=== PATIENT | female | born 1940 | race Caucasian/White ===

== ENCOUNTER 2020-02-13 07:13 | Outpatient (CLI) | payer MEDICARE, SELFPAY ==
--- NOTE | ~2020-02-13 | CT_ITS ---
EXAMINATION: CT abdomen pelvis wo con DATE: 02/13/2020 08:03 INDICATION: Colon cancer TECHNIQUE: Computed tomography (CT) of the abdomen and pelvis was performed without intravenous contr ast. The dose-length product was 1205.93 mGy-cm. Automated exposure control and iterative reconstruct ion technique were employed. COMPARISON: CT dated 08/20/2019 FINDINGS: Stable 6 mm right lower lobe nodule, likely granuloma. Lingular atelectasis. Borderline hea rt size. No significant pleural or pericardial effusion. Gallstones. The liver, spleen, pancreas, adrenal glands and kidneys are unremarkable. Moderate athero sclerosis. No aneurysm. No lymphadenopathy. Colonic diverticulosis without evidence for diverticuliti s. Partial right colectomy. Small fat-containing umbilical hernia. Nonobstructive bowel gas pattern. No free air or free fluid. Moderate lumbar spondylosis. No osteolytic or osteoblastic lesions are caroline ntified. IMPRESSION: 1. No acute abdominal abnormality. No evidence for metastatic disease. 2: Cholelithiasis. Reviewed, dictated and finalized at location A.
[2020-02-13 07:35] LABS: Basophils Absolute Auto 0.1 K/mm3 (0.0-0.1); Basophils Percent Auto 0.6 % (0.2-1.2); Eosinophils Absolute Auto 0.2 K/mm3 (0-0.3); Eosinophils Percent Auto 1.6 % (0-4.4); Hematocrit 46.1 % (37.0-47.0); Hemoglobin 14.6 g/dL (12.0-15.0); Immature Granulocyte Absolute 0.04 K/mm3 (0.00-0.031); Immature Granulocyte Percent A 0.4 % (0-0.5); Lymphocytes Absolute Auto 1.94 K/mm3 (0.9-3.2); Lymphocytes Percent Auto 19.5 % (18.3-44.2); Mean Corpuscular HGB Conc 31.7 g/dl (32-36); Mean Corpuscular Hemoglobin 29.3 pg (26-34); Mean Corpuscular Volume 92.6 fl (80-100); Mean Platelet Volume 9.6 fl (7.4-10.4); Monocytes Absolute Auto 0.6 K/mm3 (0.1-0.6); Neutrophils Absolute Auto 7.2 K/mm3 (1.3-6.7); Neutrophils Percent Auto 71.9 % (45.5-73.1); Platelet Count Result 342 k/mm3 (150-375); Red Blood Count 4.98 M/mm3 (4.2-5.4); Red Cell Distribution Width 13.2 % (11.5-14.5)
[2020-02-13 07:46] LABS: Alanine Aminotransferase 25 U/L (4-35); Albumin Level 4.1 g/dL (3.5-5.1); Alkaline Phosphatase 120 U/L (38-126); Aspartate Amino Transferase 23 U/L (14-36); Bilirubin,Total 0.8 mg/dL (0.2-1.3); Blood Urea Nitrogen 20 mg/dL (7-17); Calcium 9.3 mg/dL (8.4-10.2); Carbon Dioxide 26 mmol/L (22-30); Chloride 104 mmol/L (98-107); Estimated Glomerular Filt Rate 48; Glucose 134 mg/dL (65-105); Potassium 3.9 mmol/L (3.4-5.0); Sodium 142 mmol/L (137-145)
[2020-02-13 08:16] LABS: Carcinoembryonic Antigen 1.9 ng/mL (0.0-3.0)
== END 2020-02-13 07:14 | disposition home or self-care (01) ==
PROVIDERS: PCP Family Medicine; Visit Provider Internal Medicine Medical Oncology
DX: C18.2 Malignant neoplasm of ascending colon (principal); K80.20 Calculus of gallbladder without cholecystitis without obstruction
CPT/HCPCS: 36415; 74176; 80053; 82378; 85025

== ENCOUNTER 2020-08-13 09:23 | Outpatient (CLI) | payer MEDICARE, SELFPAY ==
[2020-08-13 09:47] LABS: Basophils Absolute Auto 0.1 K/mm3 (0.0-0.1); Basophils Percent Auto 0.7 % (0.2-1.2); Eosinophils Absolute Auto 0.1 K/mm3 (0-0.3); Eosinophils Percent Auto 1.2 % (0-4.4); Hemoglobin 15.4 g/dL (12.0-15.0); Immature Granulocyte Absolute 0.03 K/mm3 (0.00-0.031); Immature Granulocyte Percent A 0.4 % (0-0.5); Lymphocytes Absolute Auto 1.67 K/mm3 (0.9-3.2); Lymphocytes Percent Auto 19.9 % (18.3-44.2); Mean Corpuscular HGB Conc 32.1 g/dl (32-36); Mean Corpuscular Hemoglobin 29.8 pg (26-34); Mean Corpuscular Volume 92.8 fl (80-100); Mean Platelet Volume 9.1 fl (7.4-10.4); Monocytes Absolute Auto 0.5 K/mm3 (0.1-0.6); Monocytes Percent Auto 5.6 % (2.6-8.5); Neutrophils Absolute Auto 6.1 K/mm3 (1.3-6.7); Neutrophils Percent Auto 72.2 % (45.5-73.1); Platelet Count Result 291 k/mm3 (150-375); Red Blood Count 5.17 M/mm3 (4.2-5.4); Red Cell Distribution Width 13.5 % (11.5-14.5); White Blood Count 8.4 K/mm3 (4.5-10.0)
[2020-08-13 10:03] LABS: Alanine Aminotransferase 24 U/L (4-35); Alkaline Phosphatase 97 U/L (38-126); Anion Gap 9 mmol/L (8-16); Aspartate Amino Transferase 24 U/L (14-36); Bilirubin,Total 0.6 mg/dL (0.2-1.3); Blood Urea Nitrogen 25 mg/dL (7-17); Calcium 9.6 mg/dL (8.4-10.2); Carbon Dioxide 27 mmol/L (22-30); Chloride 104 mmol/L (98-107); Estimated Glomerular Filt Rate 48; Glucose 144 mg/dL (65-105); Potassium 3.9 mmol/L (3.4-5.0); Sodium 140 mmol/L (137-145)
[2020-08-13 10:32] LABS: Carcinoembryonic Antigen 2.1 ng/mL (0.0-3.0)
== END 2020-08-13 09:24 | disposition home or self-care (01) ==
PROVIDERS: PCP Family Medicine; Visit Provider Internal Medicine Medical Oncology
DX: C18.2 Malignant neoplasm of ascending colon (principal)
CPT/HCPCS: 36415; 80053; 82378; 85025

== ENCOUNTER 2021-02-21 10:00 | Outpatient (CLI) | payer MEDICARE, SELFPAY ==
--- NOTE | ~2021-02-21 | CT_ITS ---
EXAMINATION: CT abdomen pelvis wo con DATE: 02/21/2021 10:33 INDICATION: Colon cancer restaging TECHNIQUE: Computed tomography (CT) of the abdomen and pelvis was performed without intravenous contr ast. Automated exposure control and iterative reconstruction technique were employed. Exam dose: 132 5.31 mGy-cm total exam DLP. COMPARISON: 02/13/[address] abdomen pelvis FINDINGS: Status post right partial colectomy for history of ascending colon cancer. Diverticulosis of the left colon; no CT evidence of diverticulitis. No bowel obstruction, bowel wall thickening, pneumatosis or intraperitoneal free air. The uterus and adnexal areas are unremarkable. There is extensive calcification of the abdominal aorta including at the origins of the celiac and keller perior mesenteric and renal arteries; no abdominal aortic aneurysm. Bilateral iliac and femoral arter y calcifications. Cholelithiasis. No gallbladder wall thickening or pericholecystic fat stranding or fluid is evident. No bile duct or pancreatic duct dilatation. No hepatic, splenic, pancreatic, and adrenal or renal spa ce-occupying mass lesion is evident. No urinary tract calculus or hydroureteronephrosis. The urinary bladder is evacuated, which may account for the prominent appearance of wall thickness of the bladder . Small fat-containing umbilical hernia. There is multilevel degenerative disc disease of the lumbar and lumbosacral spine and prominent degen erative change at the apophyseal joints of the lumbar spine, with associated grade 1 anterolisthesis at and L3-4 and L4-5. Diffuse osteopenia. IMPRESSION: Status post right partial colectomy for history of ascending colon carcinoma; no recurre nt or metastatic disease is evident Cholelithiasis Diverticulosis of the left colon; no CT evidence of diverticulitis Reviewed, dictated and finalized at Location A. Reviewed, dictated and finalized at location A. IMPRESSION: Status post right partial colectomy for history of ascending colon carcinoma; no recurrent or metastatic disease is evident Cholelithiasis Diverticulosis of the left colon; no CT evidence of diverticulitis
[2021-02-21 10:58] LABS: Basophils Absolute Auto 0.1 K/mm3 (0.0-0.1); Basophils Percent Auto 0.7 % (0.2-1.2); Eosinophils Absolute Auto 0.1 K/mm3 (0-0.3); Eosinophils Percent Auto 1.4 % (0-4.4); Hematocrit 48.8 % (37.0-47.0); Hemoglobin 15.7 g/dL (12.0-15.0); Immature Granulocyte Absolute 0.02 K/mm3 (0.00-0.031); Immature Granulocyte Percent A 0.3 % (0-0.5); Lymphocytes Absolute Auto 1.51 K/mm3 (0.9-3.2); Lymphocytes Percent Auto 19.7 % (18.3-44.2); Mean Corpuscular HGB Conc 32.2 g/dl (32-36); Mean Corpuscular Hemoglobin 30.1 pg (26-34); Mean Corpuscular Volume 93.7 fl (80-100); Mean Platelet Volume 9.4 fl (7.4-10.4); Monocytes Absolute Auto 0.5 K/mm3 (0.1-0.6); Monocytes Percent Auto 6.8 % (2.6-8.5); Neutrophils Absolute Auto 5.5 K/mm3 (1.3-6.7); Neutrophils Percent Auto 71.1 % (45.5-73.1); Platelet Count Result 287 k/mm3 (150-375); Red Blood Count 5.21 M/mm3 (4.2-5.4); Red Cell Distribution Width 13.1 % (11.5-14.5); White Blood Count 7.7 K/mm3 (4.5-10.0)
[2021-02-21 11:11] LABS: Alanine Aminotransferase 17 U/L (4-35); Albumin Level 4.3 g/dL (3.5-5.1); Alkaline Phosphatase 101 U/L (38-126); Anion Gap 6 mmol/L (8-16); Aspartate Amino Transferase 22 U/L (14-36); Bilirubin,Total 0.8 mg/dL (0.2-1.3); Blood Urea Nitrogen 27 mg/dL (7-17); Carbon Dioxide 30 mmol/L (22-30); Chloride 103 mmol/L (98-107); Estimated Glomerular Filt Rate 40; Glucose 132 mg/dL (65-105); Potassium 3.9 mmol/L (3.4-5.0); Sodium 139 mmol/L (137-145)
[2021-02-21 11:42] LABS: Carcinoembryonic Antigen 1.9 ng/mL (0.0-3.0)
== END 2021-02-21 10:01 | disposition home or self-care (01) ==
PROVIDERS: PCP Family Medicine; Visit Provider Internal Medicine Medical Oncology
DX: C18.2 Malignant neoplasm of ascending colon (principal); K57.30 Diverticulosis of large intestine without perforation or abscess without bleeding; K80.20 Calculus of gallbladder without cholecystitis without obstruction
CPT/HCPCS: 36415; 74176; 80053; 82378; 85025

== ENCOUNTER 2021-05-27 01:11 | Day surgery (SDC) | payer MEDICARE, SELFPAY ==
[2021-05-16 15:15] VITALS: BMI 40.4
[2021-05-27 07:07] VITALS: BP 187/84; PULSE 71; RESP 22; TEMP 36.2; O2SAT 97; BMI 38.2
[2021-05-27] MEDS: LACTATED RINGERS 1,000 ML 150 ML IV CONT (07:25)
--- NOTE | 2021-05-27 07:36 | WPDANESEPPF ---
Anes - Initial Pre Proc Eval Procedure: Operation Date: 05/27/21 08:15 Proposed Procedures p Screening Colonoscopy - Christian Sullivan MD Date/Time: 05/27/21 07:36 Surgeon: Christian Sullivan MD Pre Op Diagnosis: hx of colon ca Patient Data Age: 81 Gender: F Height: 1.55 m Weight: 91.8 kg Last Vital Signs Temp 36.2 C L 05/27/21 07:07 Pulse 71 05/27/21 07:07 Resp 22 H 05/27/21 07:07 BP 187/84 H 05/27/21 07:07 Pulse Ox 97 05/27/21 07:07 Allergies Allergy/AdvReac Type Severity Reaction Status Date / Time adhesive tape AdvReac Intermediate BLISTERS Verified 05/16/21 15:10 ON SKIN Home Medications Medication Instructions Recorded Confirmed Type amlodipine 5 mg PO DAILY 05/16/21 05/27/21 History apixaban [Eliquis] 5 mg PO BID 05/16/21 05/27/21 History brimonidine 1 drp LEFT EYE BID 05/16/21 05/27/21 History diltiazem HCl 180 mg PO DAILY 05/16/21 05/27/21 History diltiazem HCl 360 mg PO DAILY 05/16/21 05/27/21 History dorzolamide-timolol 1 drp EACH EYE BID 05/16/21 05/27/21 History hydrochlorothiazide 25 mg PO DAILY 05/16/21 05/27/21 History magnesium 250 mg PO DAILY 05/16/21 05/27/21 History qk-ps-ajse-FA-Ca carb-vit K 1 tablet PO DAILY 05/16/21 05/27/21 History [Women's Multivitamin] potassium chloride [Klor-Con M20] 20 meq PO DAILY 05/16/21 05/27/21 History quinapril 40 mg PO DAILY 05/16/21 05/27/21 History simvastatin 20 mg PO HS 05/16/21 05/27/21 History sodium,potassium,mag sulfates 17.5 See Rx Instructions PO .COMPLEX 05/17/21 05/27/21 Rx gram-3.13 gram-1.6 gram oral soln #354 ml Patient hx anesthesia problems: none Family hx anesthesia problems: none PMFSH Past Medical History Medical History Afib CAD (coronary artery disease) CHF (congestive heart failure) Hyperlipidemia Hypertension Social History Social History Smoking status: Never smoker Living arrangements: with family Spiritual care concerns: No Anes - Eval Final PreProcedure Day of Procedure 05/27/21 07:36 Patient weight: obese Heart: irregular rhythm Lungs: decreased breath sounds Airway: Mallampati scale class II Neurological: other (alert) Last oral intake: >/= 8 hours ASA classification: IV Emergent: no Anesthetic plan: proceed Anesthesia type and monitoring: general GIVS and standard monitoring Informed Consent: The patient's anesthetic plan and its attendant risks and benefits were discussed with the patient/family/POA. Questions were solicited and answers provided to the satisfaction of the patient/family/POA.
--- NOTE | 2021-05-27 07:55 | WPDGICN ---
Assessment and Plan Assessment and plan (1) History of colon cancer: Code(s): Z85.038 - Personal history of other malignant neoplasm of large intestine Status: Acute Assessment and Plan: Patient has a history of colon cancer resected in 2016. Plan is for surveillance colonoscopy now and further recommendations will be given after endoscopy. (2) Afib: Code(s): I48.91 - Unspecified atrial fibrillation Status: Acute Assessment and Plan: Patient on Eliquis because of chronic atrial fibrillation. This will be held briefly for endoscopy. GI Consult Note Consult date/time: 05/27/21 07:55 HPI: Shanel Aranda is a 81 year old female Presents for surveillance colonoscopy. Patient was identified as having colon cancer in 2016. She has done well subsequently. With no evidence recurrence. Current weight appetite bowel movements are normal. Patient denies abdominal pain. She states her bowel habits are normal. Patient has had no bleeding. Family history is noncontributory. Review of Systems Review of Systems: All systems reviewed & are unremarkable except as noted in HPI and below PMFSH Past Medical History Medical History (Updated 05/27/21 @ 07:57 by Christian Sullivan MD) Afib CAD (coronary artery disease) CHF (congestive heart failure) Hyperlipidemia Hypertension Social History Social History Smoking status: Never smoker Living arrangements: with family Spiritual care concerns: No Meds Home Medications and Allergies Home Medications Medication Instructions Recorded Confirmed Type amlodipine 5 mg PO DAILY 05/16/21 05/27/21 History apixaban [Eliquis] 5 mg PO BID 05/16/21 05/27/21 History brimonidine 1 drp LEFT EYE BID 05/16/21 05/27/21 History diltiazem HCl 180 mg PO DAILY 05/16/21 05/27/21 History diltiazem HCl 360 mg PO DAILY 05/16/21 05/27/21 History dorzolamide-timolol 1 drp EACH EYE BID 05/16/21 05/27/21 History hydrochlorothiazide 25 mg PO DAILY 05/16/21 05/27/21 History magnesium 250 mg PO DAILY 05/16/21 05/27/21 History pu-gh-ijhb-FA-Ca carb-vit K 1 tablet PO DAILY 05/16/21 05/27/21 History [Women's Multivitamin] potassium chloride [Klor-Con M20] 20 meq PO DAILY 05/16/21 05/27/21 History quinapril 40 mg PO DAILY 05/16/21 05/27/21 History simvastatin 20 mg PO HS 05/16/21 05/27/21 History sodium,potassium,mag sulfates 17.5 See Rx Instructions PO .COMPLEX 05/17/21 05/27/21 Rx gram-3.13 gram-1.6 gram oral soln #354 ml Allergies Allergy/AdvReac Type Severity Reaction Status Date / Time adhesive tape AdvReac Intermediate BLISTERS Verified 05/16/21 15:10 ON SKIN Vital Signs Vital Signs - 24 hr 05/27/21 07:07 Temperature 97.2 F L Pulse Rate 71 Respiratory Rate 22 H Blood Pressure 187/84 H Pulse Oximetry 97 Exam Narrative: Physical exam reveals patient be alert. Vital signs stable. HEENT exam is unremarkable. Lungs are clear to auscultation and percussion. Heart is without murmur or extra sounds. She has an irregular rate. Abdomen is obese. Bowel sounds are present soft nontender with no organomegaly. Digital external rectal exam is normal.
[2021-05-27 08:33] VITALS: BP 134/59; PULSE 72; RESP 24; O2SAT 99
--- NOTE | 2021-05-27 08:36 | SUR.PHASEII ---
Dr. Sullivan states that patient can start back on Eliquis tomorrow.
[2021-05-27 08:43] VITALS: BP 150/71; PULSE 69; RESP 20; O2SAT 98
[2021-05-27 08:53] VITALS: BP 154/76; PULSE 67; RESP 23; O2SAT 100
== END 2021-05-27 08:58 | disposition home or self-care (01) ==
PROVIDERS: PCP Family Medicine; Visit Provider Internal Medicine Gastroenterology
PROC: 0DJD8ZZ Inspection of Lower Intestinal Tract, Via Natural or Artificial Opening Endoscopic (ICD-10-PCS; CPT 45378; principal; 2021-05-27 08:15)
DX: Z12.11 Encounter for screening for malignant neoplasm of colon (principal); D12.3 Benign neoplasm of transverse colon; K62.1 Rectal polyp; K57.30 Diverticulosis of large intestine without perforation or abscess without bleeding; I11.0 Hypertensive heart disease with heart failure; I50.9 Heart failure, unspecified; I48.20 Chronic atrial fibrillation, unspecified; E78.5 Hyperlipidemia, unspecified; Z85.038 Personal history of other malignant neoplasm of large intestine; Z90.49 Acquired absence of other specified parts of digestive tract
CPT/HCPCS: 45385; 88305; J2704; J7120

== ENCOUNTER 2021-08-22 08:28 | Outpatient (CLI) | payer MEDICARE, SELFPAY ==
--- NOTE | ~2021-08-22 | CT_ITS ---
EXAMINATION: CT abdomen pelvis w con INDICATION: Malignant neoplasm of the ascending colon TECHNIQUE: Computed tomographic images of the abdomen and pelvis were obtained after the administrati on of 100 cc of Omnipaque 350 intravenous contrast. The dose-length product (DLP) was 1316.80 mGy-cm. Automated exposure control and iterative reconstruction technique were employed. COMPARISON: 02/21/2021 FINDINGS: There is a stable 5 mm nodule of the right lower lobe. Cardiomegaly is noted. A stone is pr esent in the contracted gallbladder. There is no intrahepatic or extrahepatic biliary dilatation. The liver, spleen, pancreas, and adrenal glands are normal. Kidneys are unremarkable. There is calcified atherosclerosis of the aorta and many of the other arteries. There are changes of right hemicolectom y. No pathologically enlarged abdominal or pelvic lymph nodes are identified. There is no free intrap eritoneal gas or evidence of bowel obstruction. Colonic diverticulosis is present without evidence of diverticulitis. There is severe lumbar spondylosis. IMPRESSION: 1. Changes of right hemicolectomy without evidence of recurrent or metastatic disease. 2. Cholelithiasis without evidence of cholecystitis. Reviewed, dictated and finalized at location B. MOLOGY TEACHER IMPRESSION: 1. Changes of right hemicolectomy without evidence of recurrent or metastatic d isease. 2. Cholelithiasis without evidence of cholecystitis.
[2021-08-22 08:58] LABS: Estimated Glomerular Filt Rate 43
[2021-08-22 09:22] LABS: Basophils Absolute Auto 0.1 K/mm3 (0.0-0.1); Basophils Percent Auto 0.7 % (0.2-1.2); Eosinophils Absolute Auto 0.1 K/mm3 (0-0.3); Eosinophils Percent Auto 1.2 % (0-4.4); Hematocrit 46.1 % (37.0-47.0); Hemoglobin 14.4 g/dL (12.0-15.0); Immature Granulocyte Absolute 0.02 K/mm3 (0.00-0.031); Immature Granulocyte Percent A 0.3 % (0-0.5); Lymphocytes Absolute Auto 1.07 K/mm3 (0.9-3.2); Lymphocytes Percent Auto 14.3 % (18.3-44.2); Mean Corpuscular HGB Conc 31.2 g/dl (32-36); Mean Corpuscular Hemoglobin 30.1 pg (26-34); Mean Corpuscular Volume 96.2 fl (80-100); Mean Platelet Volume 9.3 fl (7.4-10.4); Monocytes Absolute Auto 0.5 K/mm3 (0.1-0.6); Monocytes Percent Auto 6.5 % (2.6-8.5); Neutrophils Absolute Auto 5.8 K/mm3 (1.3-6.7); Platelet Count Result 281 k/mm3 (150-375); Red Blood Count 4.79 M/mm3 (4.2-5.4); Red Cell Distribution Width 12.8 % (11.5-14.5); White Blood Count 7.5 K/mm3 (4.5-10.0)
[2021-08-22 12:45] LABS: Alanine Aminotransferase 19 U/L (4-35); Albumin Level 3.7 g/dL (3.5-5.1); Alkaline Phosphatase 94 U/L (38-126); Anion Gap 8 mmol/L (8-16); Aspartate Amino Transferase 22 U/L (14-36); Bilirubin,Total 0.7 mg/dL (0.2-1.3); Blood Urea Nitrogen 21 mg/dL (7-17); Calcium 9.2 mg/dL (8.4-10.2); Carbon Dioxide 27 mmol/L (22-30); Chloride 101 mmol/L (98-107); Estimated Glomerular Filt Rate 48; Glucose 131 mg/dL (65-110); Sodium 136 mmol/L (137-145)
[2021-08-22 13:15] LABS: Carcinoembryonic Antigen 1.7 ng/mL (0.0-3.0)
== END 2021-08-22 08:29 | disposition home or self-care (01) ==
PROVIDERS: PCP Family Medicine; Visit Provider Internal Medicine Medical Oncology
DX: C18.2 Malignant neoplasm of ascending colon (principal); Z90.49 Acquired absence of other specified parts of digestive tract; K80.20 Calculus of gallbladder without cholecystitis without obstruction
CPT/HCPCS: 74177; 80053; 82378; 85025; Q9967

== ENCOUNTER 2022-05-18 10:32 | Outpatient (CLI) | payer MEDICARE, SELFPAY ==
[2022-05-18 11:34] LABS: Basophils Absolute Auto 0.1 K/mm3 (0.0-0.1); Basophils Percent Auto 0.8 % (0.2-1.2); Eosinophils Absolute Auto 0.1 K/mm3 (0-0.3); Eosinophils Percent Auto 1.8 % (0-4.4); Hematocrit 47.3 % (37.0-47.0); Hemoglobin 14.5 g/dL (12.0-15.0); Immature Granulocyte Absolute 0.01 K/mm3 (0.00-0.031); Immature Granulocyte Percent A 0.1 % (0-0.5); Lymphocytes Absolute Auto 1.58 K/mm3 (0.9-3.2); Lymphocytes Percent Auto 19.8 % (18.3-44.2); Mean Corpuscular HGB Conc 30.7 g/dl (32-36); Mean Corpuscular Hemoglobin 29.3 pg (26-34); Mean Corpuscular Volume 95.6 fl (80-100); Mean Platelet Volume 9.6 fl (7.4-10.4); Monocytes Absolute Auto 0.6 K/mm3 (0.1-0.6); Monocytes Percent Auto 7.5 % (2.6-8.5); Neutrophils Absolute Auto 5.6 K/mm3 (1.3-6.7); Platelet Count Result 289 k/mm3 (150-375); Red Blood Count 4.95 M/mm3 (4.2-5.4); Red Cell Distribution Width 13.4 % (11.5-14.5)
[2022-05-18 11:50] LABS: Alanine Aminotransferase 16 U/L (6-35); Albumin Level 3.9 g/dL (3.5-5.1); Alkaline Phosphatase 103 U/L (38-126); Anion Gap 8 mmol/L (8-16); Aspartate Amino Transferase 20 U/L (14-36); Bilirubin,Total 0.5 mg/dL (0.2-1.3); Blood Urea Nitrogen 26 mg/dL (7-17); Calcium 9.2 mg/dL (8.4-10.2); Carbon Dioxide 27 mmol/L (22-30); Chloride 102 mmol/L (98-107); Estimated Glomerular Filt Rate 39; Glucose 132 mg/dL (65-110); Potassium 4.4 mmol/L (3.4-5.0); Sodium 137 mmol/L (137-145)
== END 2022-05-18 10:33 | disposition home or self-care (01) ==
LOC: ANHLAB 10:35
PROVIDERS: PCP Family Medicine; Visit Provider Internal Medicine Medical Oncology
DX: C18.2 Malignant neoplasm of ascending colon (principal)
CPT/HCPCS: 36415; 80053; 82378; 85025

== ENCOUNTER 2023-05-16 08:44 | Outpatient (CLI) | payer MEDICARE, SELFPAY ==
[2023-05-16 09:55] LABS: Basophils Absolute Auto 0.1 K/mm3 (0.0-0.1); Basophils Percent Auto 0.6 % (0.2-1.2); Eosinophils Absolute Auto 0.3 K/mm3 (0-0.3); Eosinophils Percent Auto 2.8 % (0-4.4); Hematocrit 45.6 % (37.0-47.0); Hemoglobin 14.4 g/dL (12.0-15.0); Immature Granulocyte Absolute 0.04 K/mm3 (0.00-0.031); Immature Granulocyte Percent A 0.4 % (0-0.5); Lymphocytes Absolute Auto 2.03 K/mm3 (0.9-3.2); Lymphocytes Percent Auto 18.7 % (18.3-44.2); Mean Corpuscular HGB Conc 31.6 g/dl (32-36); Mean Corpuscular Hemoglobin 29.8 pg (26-34); Mean Corpuscular Volume 94.4 fl (80-100); Mean Platelet Volume 10.2 fl (7.4-10.4); Monocytes Absolute Auto 0.7 K/mm3 (0.1-0.6); Monocytes Percent Auto 6.2 % (2.6-8.5); Neutrophils Absolute Auto 7.8 K/mm3 (1.3-6.7); Neutrophils Percent Auto 71.3 % (45.5-73.1); Platelet Count Result 288 k/mm3 (150-375); Red Blood Count 4.83 M/mm3 (4.2-5.4); Red Cell Distribution Width 13.2 % (11.5-14.5); White Blood Count 10.9 K/mm3 (4.5-10.0)
[2023-05-16 10:05] LABS: Anion Gap 6 mmol/L (8-16); Blood Urea Nitrogen 26 mg/dL (7-17); Carbon Dioxide 26 mmol/L (22-30); Chloride 104 mmol/L (98-107); Potassium 4.5 mmol/L (3.4-5.0); Sodium 136 mmol/L (137-145)
[2023-05-16 10:06] LABS: Alanine Aminotransferase 24 U/L (6-35); Albumin Level 4.2 g/dL (3.5-5.1); Alkaline Phosphatase 101 U/L (38-126); Aspartate Amino Transferase 29 U/L (14-36); Calcium 9.3 mg/dL (8.4-10.2); Estimated Glomerular Filt Rate 39; Glucose 117 mg/dL (65-110)
[2023-05-16 10:31] LABS: Carcinoembryonic Antigen 2.2 ng/mL (0.0-3.0)
== END 2023-05-16 08:45 | disposition home or self-care (01) ==
PROVIDERS: PCP Family Medicine; Visit Provider Internal Medicine Medical Oncology
DX: C18.2 Malignant neoplasm of ascending colon (principal)
CPT/HCPCS: 36415; 80053; 82378; 85025

== ENCOUNTER 2023-10-29 12:01 | Emergency (ER) | payer MEDICARE, SELFPAY ==
--- NOTE | ~2023-10-29 | XR_ITS ---
XR chest 1V portable DATE: 10/29/2023 13:00 INDICATION: Syncope TECHNIQUE: Portable upright AP chest on 08/29/2024 at 1251 hours COMPARISON: 09/06/2016 portable AP chest FINDINGS: Cardiomegaly. Aortic arch calcification. There is a transverse discoid density in the left mid lung which may represent discoid atelectasis or scarring. Mild left perihilar infiltrate; otherwise no pulmonary consolidation, pleural effusion, pulmonary vas cular congestion or pneumothorax is noted. Osteopenia. Left glenohumeral osteoarthritis. Degenerative spurring of the thoracic spine. IMPRESSION: Cardiomegaly, aortic atherosclerosis Discoid atelectasis or scarring, left midlung Mild left perihilar infiltrate Reviewed, dictated and finalized at location B. OL PHOTOGRAPHS DETAILER
--- NOTE | ~2023-10-29 | CT_ITS ---
EXAMINATION: CT brain wo con DATE: 10/29/2023 12:46 INDICATION: Syncopal episode TECHNIQUE: Computed tomography (CT) of the head was performed without intravenous contrast. The mA wa s adjusted according to patient size. Iterative reconstruction technique was employed. Exam dose: 13 62.00 mGy-cm total exam DLP. COMPARISON: None FINDINGS: A second set of images was obtained due to motion artifact. Prominent bilateral vertebral artery and carotid siphon internal carotid artery calcifications. There is nonspecific diminished attenuation of the cerebral white matter, likely due to chronic small vessel ischemic changes. Chronic right thalamic lacunar infarcts. Chronic lacunar infarct of the head of the left caudate nucl eus. There is a prominent calcification along the falx. Normal ventricular size. No intracranial mass lesion or hemorrhage or cerebrovascular accident is magali dent. No subdural or epidural hematoma. The orbital contents are unremarkable. No fracture or bone destruction of the cranial vault. The included paranasal sinuses and right mastoid air cells are well-developed and aerated. Left masto id air cells are not well-developed. IMPRESSION: Cerebral atherosclerosis and chronic small vessel ischemic changes of the cerebral white matter Chronic lacunar infarct of right thalamus and head of left caudate nucleus No acute intracranial finding Reviewed, dictated and finalized at Location A. Reviewed, dictated and finalized at location B. Y ATTENDANT
[2023-10-29 12:03] VITALS: BP 127/69; PULSE 94; RESP 26; TEMP 36.7; O2SAT 93
--- NOTE | 2023-10-29 12:03 | ECG_ITS ---
Measurements Intervals [place] Rate: 105 P: 96 [place]: 135 QRS: 23 QRSD: 96 T: 59 QT: 330 QTc: 437 Interpretive Statements SINUS TACHYCARDIA ATRIAL AND VENTRICULAR PREMATURE COMPLEXES NONSPECIFIC ST & T-WAVE ABNORMALITY- HIGH LATERAL LEADS BASELINE ARTIFACT- I, II, III, AVR, AVL, AVF ABNORMAL ECG NO PREVIOUS ECG AVAILABLE FOR COMPARISON Electronically Signed On 10-29-2023 12:41:33 CLUB WAITER/WAITRESS by Juan David Munroe D.O.
--- NOTE | 2023-10-29 12:09 | ED.SYNCOPE ---
HPI - Syncope General Chief Complaint: Syncope Stated Complaint: syncopal episode Time Seen by Provider: 10/29/23 12:04 Source: patient, family and EMS Mode of arrival: EMS History of Present Illness HPI narrative: 83 YEARS OLD WHITE FEMALE CAME FROM HOME BY AMBULANCE BECAUSE OF NEAR SYNCOPE/ SYNCOPE. PATIENT REPORTS WITH HAVING CONSTIPATION, SITTING ON THE TOILET PUSHING HARD, FELT LIGHTHEADEDNESS AND ABOUT TO BLACK OUT, DID NOT FALL. HER SON CAME OVER COLD HER NAME AND WAS NOT RESPONDING WELL WHILE SITTING ON THE TOILET. SYMPTOM RESOLVED IN FEW MINUTES. CURRENTLY PATIENT IS ASYMPTOMATIC. SHE DENIES ANY FEVER, CHILLS, NAUSEA, VOMITING, CHEST PAIN, SHORTNESS OF BREATH, HEADACHE OR FOCAL NEURO DEFICIT. LAST BOWEL MOVEMENT WAS YESTERDAY. PATIENT ON FIBER SUPPLEMENT ONCE A DAY. Related Data Home Medications Medication Instructions Recorded Confirmed brimonidine 0.2 % eye drops 1 drp LEFT EYE BID 05/16/21 10/29/23 dorzolamide 22.3 mg-timolol 6.8 1 drp EACH EYE BID 05/16/21 10/29/23 mg/mL eye drops magnesium 250 mg tablet 250 mg PO DAILY 05/16/21 10/29/23 nbhhncwr-jcr-uzed-FA-Ca carb-vit K 1 tablet PO DAILY 05/16/21 10/29/23 18 mg iron-400 mcg-500 mg tablet (Women's Multivitamin) psyllium husk 0.4 gram capsule 1.2 g PO DAILY 10/29/23 10/29/23 Allergies Allergy/AdvReac Type Severity Reaction Status Date / Time adhesive tape AdvReac Intermediate BLISTERS Verified 04/24/23 11:01 ON SKIN capecitabine [From Xeloda] AdvReac Unknown Verified 10/29/23 12:14 Review of Systems Review of Systems: All systems reviewed & are unremarkable except as noted in HPI and below PMFSH Past Medical History Medical History Afib Atherosclerosis of aorta CAD (coronary artery disease) CHF (congestive heart failure) Chronic atrial fibrillation, unspecified Chronic combined systolic (congestive) and diastolic (congestive) heart failure Chronic kidney disease, stage 3a Chronic kidney disease, stage 3b Encounter for screening for lipoid disorders History of colon cancer Hyperlipidemia Hypertension Hypertensive chronic kidney disease with stage 1 through stage 4 chronic kidney disease, or unspecified chronic kidney disease Morbid (severe) obesity due to excess calories Personal history of colonic polyps Personal history of other malignant neoplasm of large intestine Type 2 diabetes mellitus with moderate nonproliferative diabetic retinopathy without macular edema, left eye Surgical History Surgical History H/O dilation and curettage (~196) H/O reduction of closed fracture (~1949) arm History of cataract surgery (~2013) Both eyes History of colonoscopy 04/12/2016 History of laparotomy (~05/10/16) History of tonsillectomy (~1945) Family History Family History Father , 86 y/o Hypertension Cerebrovascular accident Mother , 80 y/o Hypertension Colon cancer CHF (congestive heart failure) Grandparent , Paternal Grand Father 82 Diabetes mellitus Grandparent , Paternal Grand Mother 82 Diabetes mellitus Cerebrovascular accident Grandparent , Maternal Grand Mother 79 CHF (congestive heart failure) Diabetes mellitus Grandparent , Maternal Grand Father 65 Cancer of larynx Social History Social History Smoking status: Never smoker Alcohol intake: never Substance use: never Lack of Transportation: No Lack of Food: Never True Current Housing: I Have Housing Concerned About Future Housing: No Difficulty Paying Gas/Electric Bills: No Difficulty Paying for Meds: No Currently Unemployed: No Education: High School Diploma/GED Difficulty w/ Childcare or Family Care: No Living arrangements: with family Occupation/Education: reti
[2023-10-29 12:27] LABS: Basophils Absolute Auto 0.1 K/mm3 (0.0-0.1); Basophils Percent Auto 0.6 % (0.2-1.2); Eosinophils Absolute Auto 0.1 K/mm3 (0-0.3); Eosinophils Percent Auto 0.8 % (0-4.4); Hematocrit 47.9 % (37.0-47.0); Hemoglobin 14.7 g/dL (12.0-15.0); Immature Granulocyte Absolute 0.05 K/mm3 (0.00-0.031); Immature Granulocyte Percent A 0.5 % (0-0.5); Lymphocytes Absolute Auto 0.87 K/mm3 (0.9-3.2); Lymphocytes Percent Auto 8.6 % (18.3-44.2); Mean Corpuscular HGB Conc 30.7 g/dl (32-36); Mean Corpuscular Hemoglobin 29.7 pg (26-34); Mean Corpuscular Volume 96.8 fl (80-100); Mean Platelet Volume 9.4 fl (7.4-10.4); Monocytes Absolute Auto 1.1 K/mm3 (0.1-0.6); Monocytes Percent Auto 10.8 % (2.6-8.5); Neutrophils Absolute Auto 7.9 K/mm3 (1.3-6.7); Neutrophils Percent Auto 78.7 % (45.5-73.1); Platelet Count Result 289 k/mm3 (150-375); Red Blood Count 4.95 M/mm3 (4.2-5.4); Red Cell Distribution Width 13.7 % (11.5-14.5); White Blood Count 10.1 K/mm3 (4.5-10.0)
[2023-10-29 12:36] LABS: Alanine Aminotransferase 30 U/L (6-35); Albumin Level 3.8 g/dL (3.5-5.1); Alkaline Phosphatase 124 U/L (38-126); Anion Gap 9 mmol/L (8-16); Aspartate Amino Transferase 36 U/L (14-36); Bilirubin,Total 0.6 mg/dL (0.2-1.3); Blood Urea Nitrogen 26 mg/dL (7-17); Carbon Dioxide 25 mmol/L (22-30); Chloride 102 mmol/L (98-107); Estimated CRCL calculation 25 ml/min; Estimated Glomerular Filt Rate 29; Glucose 152 mg/dL (65-110); Potassium 4.1 mmol/L (3.4-5.0); Sodium 136 mmol/L (137-145)
[2023-10-29 12:55] LABS: INR 1.6; Prothrombin Time 20.1 Seconds (11.1-14.7)
[2023-10-29 12:56] LABS: Partial Thromboplastin Time 35.7 SECONDS (22.3-36.8)
[2023-10-29 13:03] LABS: Troponin I 0.018 ng/mL (0.000-0.034)
[2023-10-29 13:12] LABS: D Dimer 0.49 ug/mL (<0.48)
--- NOTE | 2023-10-29 15:25 | ECG_ITS ---
Measurements Intervals [place] Rate: 100 P: [place]: 0 QRS: 42 QRSD: 90 T: 77 QT: 345 QTc: 447 Interpretive Statements SINUS TACHYCARDIA ATRIAL PREMATURE COMPLEXES NONSPECIFIC ST & T-WAVE ABNORMALITY- HIGH LATERAL LEADS BASELINE ARTIFACT- I, II, III, AVR, AVL, AVF ABNORMAL ECG COMPARED TO ECG 10/29/2023 12:11:09 NO SIGNIFICANT CHANGES Electronically Signed On 10-29-2023 15:43:48 EXERCISE EQUIPMENT SPECIALIST by Juan David Munroe D.O.
[2023-10-29 16:10] VITALS: BP 112/83; PULSE 98; RESP 18; O2SAT 98
[2023-10-29 16:40] VITALS: BP 117/78; PULSE 93; RESP 24; O2SAT 95
== END 2023-10-29 16:45 | disposition home or self-care (01) ==
PROVIDERS: Emergency Medicine; Emergency Provider Emergency Medicine; PCP Family Medicine
DX: R55 Syncope and collapse (principal); K59.00 Constipation, unspecified; N17.9 Acute kidney failure, unspecified; I13.0 Hypertensive heart and chronic kidney disease with heart failure and stage 1 through stage 4 chronic kidney disease, or unspecified chronic kidney disease; E11.22 Type 2 diabetes mellitus with diabetic chronic kidney disease; N18.30 Chronic kidney disease, stage 3 unspecified; I50.42 Chronic combined systolic (congestive) and diastolic (congestive) heart failure; I25.10 Atherosclerotic heart disease of native coronary artery without angina pectoris; I48.20 Chronic atrial fibrillation, unspecified; I70.0 Atherosclerosis of aorta; E11.3392 Type 2 diabetes mellitus with moderate nonproliferative diabetic retinopathy without macular edema, left eye; E78.5 Hyperlipidemia, unspecified; E66.01 Morbid (severe) obesity due to excess calories; Z68.41 Body mass index [BMI] 40.0-44.9, adult; Z85.038 Personal history of other malignant neoplasm of large intestine; Z79.01 Long term (current) use of anticoagulants; Z98.42 Cataract extraction status, left eye; Z98.41 Cataract extraction status, right eye; I67.2 Cerebral atherosclerosis; I51.7 Cardiomegaly; R00.0 Tachycardia, unspecified; I49.1 Atrial premature depolarization; I49.3 Ventricular premature depolarization; R94.31 Abnormal electrocardiogram [ECG] [EKG]
CPT/HCPCS: 36415; 70450; 71045; 80053; 84484; 85025; 85380; 85610; 85730; 93005; 99284

== ENCOUNTER 2024-01-06 10:23 | Inpatient (IN) | payer MEDICARE, SELFPAY ==
[2024-01-06] VITALS (36 sets, daily range): BP systolic 117–154; BP diastolic 72–105; PULSE 87–111; RESP 16–35; TEMP 35.7–36.4; O2SAT 88–99; BMI 40.8
--- NOTE | ~2024-01-06 | XR_ITS ---
EXAMINATION: XR chest 2V DATE: 01/08/2024 14:00 INDICATION: Pulmonary edema TECHNIQUE: frontal and lateral views of the chest were obtained. COMPARISON: Chest radiograph dated 01/06/2024 FINDINGS: Cardiomegaly. Bandlike discoid atelectasis/scarring at the left lower lung zone. There is blunting at the bilateral costophrenic angles and posterior sulci consistent with small bilateral pleural effusi ons. No pulmonary edema or pneumothorax. Moderate thoracic spondylosis. IMPRESSION: 1. Small bilateral pleural effusions. 2. Discoid atelectasis in the left lower lung. Reviewed, dictated and finalized at location A.
--- NOTE | ~2024-01-06 | XR_ITS ---
XR chest 1V portable 01/06/2024 11:04 Indication: Heart palpitations. Procedure: AP portable chest Comparison: Comparison to multiple prior studies sequentially, with oldest reviewed study dated 11/25. Findings: Cardiomegaly with interstitial edema. Left pleural effusion. No pneumothorax. No acute osse ous abnormality. Impression: 1: Cardiomegaly with pulmonary edema. Reviewed, dictated and finalized at location A. Impression: 1: Cardiomegaly with pulmonary edema.
--- NOTE | 2024-01-06 10:30 | ECG_ITS ---
Measurements Intervals [place] Rate: 100 P: [place]: 0 QRS: 83 QRSD: 91 T: 54 QT: 349 QTc: 451 Interpretive Statements SINUS OR ECTOPIC ATRIAL TACHYCARDIA WITH SINUS ARRHYTHMIA VENTRICULAR PREMATURE COMPLEX NONSPECIFIC T-WAVE ABNORMALITY- INFERIOR LEADS ABNORMAL ECG COMPARED TO ECG 10/29/2023 15:39:34 NO SIGNIFICANT CHANGES Electronically Signed On 01-06-2024 12:19:43 CDT by Juan David Munroe D.O.
[2024-01-06 10:51] LABS: Basophils Absolute Auto 0.1 K/mm3 (0.0-0.1); Basophils Percent Auto 0.7 % (0.2-1.2); Eosinophils Absolute Auto 0.2 K/mm3 (0-0.3); Eosinophils Percent Auto 1.6 % (0-4.4); Hematocrit 45.1 % (37.0-47.0); Hemoglobin 14.2 g/dL (12.0-15.0); Immature Granulocyte Absolute 0.03 K/mm3 (0.00-0.031); Immature Granulocyte Percent A 0.2 % (0-0.5); Lymphocytes Percent Auto 18.2 % (18.3-44.2); Mean Corpuscular HGB Conc 31.5 g/dl (32-36); Mean Corpuscular Hemoglobin 30.2 pg (26-34); Mean Platelet Volume 9.6 fl (7.4-10.4); Monocytes Absolute Auto 0.7 K/mm3 (0.1-0.6); Monocytes Percent Auto 5.6 % (2.6-8.5); Neutrophils Absolute Auto 8.9 K/mm3 (1.3-6.7); Neutrophils Percent Auto 73.7 % (45.5-73.1); Platelet Count Result 292 k/mm3 (150-375); Red Cell Distribution Width 13.3 % (11.5-14.5); White Blood Count 12.1 K/mm3 (4.5-10.0)
[2024-01-06 11:02] LABS: Alanine Aminotransferase 21 U/L (6-35); Albumin Level 3.6 g/dL (3.5-5.1); Alkaline Phosphatase 114 U/L (38-126); Anion Gap 1 mmol/L (8-16); Aspartate Amino Transferase 25 U/L (14-36); Bilirubin,Total 0.8 mg/dL (0.2-1.3); Blood Urea Nitrogen 18 mg/dL (7-17); Calcium 9.2 mg/dL (8.4-10.2); Carbon Dioxide 32 mmol/L (22-30); Chloride 107 mmol/L (98-107); Estimated CRCL calculation 42 ml/min; Estimated Glomerular Filt Rate 53; Glucose 130 mg/dL (65-110); Potassium 3.8 mmol/L (3.4-5.0); Sodium 140 mmol/L (137-145)
[2024-01-06 11:04] LABS: INR 1.1; Prothrombin Time 14.7 Seconds (11.1-14.7)
[2024-01-06 11:05] LABS: Partial Thromboplastin Time 30.5 Seconds (22.3-36.8)
[2024-01-06 11:12] LABS: NT Pro B Type Natriuretic Pept 888 pg/mL (19.9-100); Troponin I < 0.012 ng/mL (0.000-0.034)
--- NOTE | 2024-01-06 11:46 | ED.GENADULT ---
HPI - General Adult General Chief complaint: Arrhythmia/Palpitations Stated complaint: afib Time Seen by Provider: 01/06/24 11:14 Source: patient Mode of arrival: ambulatory Limitations: no limitations History of Present Illness HPI narrative: 83-year-old female presenting for concerns for AFib. Says that she has been having some slight shortness of breath when she exerts herself as well as leg swelling for the last few weeks as well. But she was in AFib today so came in and evaluated. No chest pain currently. No shortness of breath at rest. Related Data Home Medications Medication Instructions Recorded Confirmed brimonidine 0.2 % eye drops 1 drp LEFT EYE BID 05/16/21 11/27/23 dorzolamide 22.3 mg-timolol 6.8 1 drp EACH EYE BID 05/16/21 11/27/23 mg/mL eye drops magnesium 250 mg tablet 250 mg PO DAILY 05/16/21 11/27/23 dgsvmuth-swc-kjut-FA-Ca carb-vit K 1 tablet PO DAILY 05/16/21 11/27/23 18 mg iron-400 mcg-500 mg tablet (Women's Multivitamin) psyllium husk 0.4 gram capsule 1.2 g PO DAILY 10/29/23 11/27/23 Allergies Allergy/AdvReac Type Severity Reaction Status Date / Time adhesive tape AdvReac Intermediate BLISTERS Verified 04/24/23 11:01 ON SKIN capecitabine [From Xeloda] AdvReac Unknown Verified 10/29/23 12:14 Review of Systems Review of Systems: All systems reviewed & are unremarkable except as noted in HPI and below PMFSH Past Medical History Medical History Afib Atherosclerosis of aorta CAD (coronary artery disease) CHF (congestive heart failure) Chronic atrial fibrillation, unspecified Chronic combined systolic (congestive) and diastolic (congestive) heart failure Chronic kidney disease, stage 3a Chronic kidney disease, stage 3b Encounter for screening for lipoid disorders History of colon cancer Hyperlipidemia Hypertension Hypertensive chronic kidney disease with stage 1 through stage 4 chronic kidney disease, or unspecified chronic kidney disease Morbid (severe) obesity due to excess calories Personal history of colonic polyps Personal history of other malignant neoplasm of large intestine Type 2 diabetes mellitus with moderate nonproliferative diabetic retinopathy without macular edema, left eye Surgical History Surgical History H/O dilation and curettage (~1961) H/O reduction of closed fracture (~1950) arm History of cataract surgery (~2013) Both eyes History of colonoscopy 04/12/2016 History of laparotomy (~05/10/16) History of tonsillectomy (~1945) Family History Family History Father , 86 y/o Hypertension Cerebrovascular accident Mother , 80 y/o Hypertension Colon cancer CHF (congestive heart failure) Grandparent , Paternal Grand Father 82 Diabetes mellitus Grandparent , Paternal Grand Mother 82 Diabetes mellitus Cerebrovascular accident Grandparent , Maternal Grand Mother 79 CHF (congestive heart failure) Diabetes mellitus Grandparent , Maternal Grand Father 65 Cancer of larynx Social History Social History Smoking status: Never smoker Alcohol intake: never Substance use: never Lack of Transportation: No Lack of Food: Never True Current Housing: I Have Housing Concerned About Future Housing: No Difficulty Paying Gas/Electric Bills: No Difficulty Paying for Meds: No Currently Unemployed: No Education: High School Diploma/GED Difficulty w/ Childcare or Family Care: No Living arrangements: with family Occupation/Education: retired Gender identity (if verbalized by the patient): Female Sexual Orientation (if Verbalized by the Patient): Straight or Heterosexual Spiritual care concerns: No Exam Narrative: Constitutional: Gene
[2024-01-06] MEDS: FUROSEMIDE INJ 40 MG/4 ML VIAL IV PUSH ×2 (11:59→16:20)
--- NOTE | 2024-01-06 15:15 | ADMGEN ---
This patient, Shanel Aranda, was admitted to IMU Room 232-01. Patient/family oriented to hospital policies and general routines including ID bracelet, bed and alarms, visiting hours, pain management, procedures, bathroom and other care routines, personal items, smoking policy, room service/diet, and visiting hours. Information on how to activate the Rapid Response Team has been discussed. Patient/Family are encouraged to report perceived risks to care and to ask questions if they do not understand what they are told or what they should do.
--- NOTE | 2024-01-06 15:25 | PM.IMHP ---
H&P: HPI History of Present Illness Date/Time: 01/06/24 15:25 Chief Complaint: Palpitations and shortness of breath. Narrative: This is a very pleasant 83-year-old female with paroxysmal atrial fibrillation on chronic anticoagulation, combined systolic and diastolic congestive heart failure, coronary artery disease, hypertension, hyperlipidemia, chronic kidney disease, type 2 diabetes mellitus, and history of colon cancer who presented to the emergency department for evaluation of palpitations and shortness of breath. The patient provides the following history. She typically is on aware when she slips into atrial fibrillation however intermittently over the past month she has had periods of time where she is certain that she is in atrial fibrillation and this seems to occur most often when she is lying in bed at night. ?My heart seems to take off.? Over the last month or so she has noticed progressive swelling in her legs and abdomen and she also endorses mild orthopnea and paroxysmal nocturnal dyspnea. The last several days she has become progressively short on lesser and lesser exertion. She denies syncope, near syncope, fever, chills, sweats, chest pain, pleuritic pain, cough, nausea, vomiting, and diarrhea. She states compliance with her home medications and has not missed any doses. No significant caffeine or alcohol intake. No known history of sleep apnea. Preliminary workup in the ED is consistent with CHF exacerbation and she is being admitted for diuresis. Review of Systems Review of Systems: Twelve systems were reviewed and are negative except for as per HPI. 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 right hemicolectomy and adjuvant chemotherapy barium Combined systolic and diastolic congestive heart failure Coronary artery disease Diabetic retinopathy Hyperlipidemia Hypertension Osteoarthritis Paroxysmal atrial fibrillation Type 2 diabetes mellitus Surgical History Surgical History (Updated 01/06/24 @ 15:35 by Jane Pak PA-C) History of appendectomy History of benign breast biopsy History of bilateral cataract extraction (2013) History of colonoscopy with polypectomy History of dilation and curettage (1960) History of open reduction and internal fixation (ORIF) procedure Repair right arm fracture. History of right hemicolectomy (04/2016) For stage IIIB adenocarcinoma of the ascending colon. History of tonsillectomy (1944) Family History Family History Father , 86 y/o Hypertension Cerebrovascular accident Mother , 80 y/o Hypertension Colon cancer CHF (congestive heart failure) Grandparent , Paternal Grand Father 82 Diabetes mellitus Grandparent , Paternal Grand Mother 82 Diabetes mellitus Cerebrovascular accident Grandparent , Maternal Grand Mother 79 CHF (congestive heart failure) Diabetes mellitus Grandparent , Maternal Grand Father 65 Cancer of larynx Social History Social History (Updated 01/06/24 @ 15:31 by Jane Pak PA-C) Social History: Surrogate medical decision maker: Code status: Smoking status: Never smoker Alcohol intake: never Substance use: never Substance use type: does not use Do You Feel Safe in your Home?: Yes Lack of Transportation: No Lack of Food: Never True Current Housing: I Have Housing Concerned About Future Housing: No Difficulty Paying Gas/Electric Bills: No Difficulty Paying for Meds: No Currently Unemployed: No Education: High School Diploma/GED Difficulty w/ Childcare or Family Care: No Living arrangements: with family Occupation/Education: retired
[2024-01-06 16:10] LABS: Glucose Point of Care 132 mg/dl (65-105)
[2024-01-06 17:02] LABS: Hemoglobin A1C 5.8 % (<5.7)
[2024-01-06 17:56] LABS: Folic Acid 19.5 ng/mL (2.76->20)
[2024-01-06 20:38] LABS: Glucose Point of Care 160 mg/dl (65-105)
[2024-01-06] MEDS: SIMVASTATIN 20 MG TABLET PO (20:57)
[2024-01-06] MEDS: APIXABAN 5 MG TABLET PO (20:57)
[2024-01-06] MEDS: DORZOLAMIDE/TIMOLOL OPHTH SOL 10 ML BOTTLE 1 DROP EACH EYE (21:30)
[2024-01-06] MEDS: BRIMONIDINE TARTRATE 0.2% OP SOLN 5 ML BTL 1 DROP LEFT EYE (21:31)
--- NOTE | 2024-01-06 21:48 | PC.NURSE ---
Per Jane HERNANDEZ this patient was supposed to have been made med tele. Confirmed she still wanted her downgraded. Transfer to [email or web address] tele ordered and processed.
[2024-01-07] VITALS (12 sets, daily range): BP systolic 108–158; BP diastolic 67–93; PULSE 98–108; RESP 16–18; TEMP 36.2–36.4; O2SAT 92–95
--- NOTE | 2024-01-07 06:10 | PC.NURSE ---
This patient, Shanel Aranda, was transferred to [ [id number]] on 01/07/24 at 0610. Personal belongings sent with patient. Report given to [BRIELLE PÉREZ ]. Appropriate documentation sent with patient.
[2024-01-07 07:46] LABS: Hematocrit 43.4 % (37.0-47.0); Hemoglobin 13.6 g/dL (12.0-15.0); Mean Corpuscular HGB Conc 31.3 g/dl (32-36); Mean Corpuscular Hemoglobin 29.6 pg (26-34); Mean Corpuscular Volume 94.6 fl (80-100); Mean Platelet Volume 9.2 fl (7.4-10.4); Platelet Count Result 266 k/mm3 (150-375); Red Blood Count 4.59 M/mm3 (4.2-5.4); Red Cell Distribution Width 13.5 % (11.5-14.5); White Blood Count 9.8 K/mm3 (4.5-10.0)
[2024-01-07 07:47] LABS: Glucose Point of Care 115 mg/dl (65-105)
[2024-01-07 07:56] LABS: Anion Gap 3 mmol/L (8-16); Blood Urea Nitrogen 22 mg/dL (7-17); Calcium 9.1 mg/dL (8.4-10.2); Carbon Dioxide 32 mmol/L (22-30); Chloride 102 mmol/L (98-107); Estimated CRCL calculation 38 ml/min; Estimated Glomerular Filt Rate 48; Glucose 133 mg/dL (65-110); Potassium 3.5 mmol/L (3.4-5.0); Sodium 137 mmol/L (137-145)
[2024-01-07] MEDS: dilTIAZem HCL CD 180 MG CAP.24HR PO (08:41)
[2024-01-07] MEDS: lisinopriL 20 MG TABLET 40 MG PO (08:41)
[2024-01-07] MEDS: dilTIAZem HCL CD 180 MG CAP.24HR 360 MG PO (08:41)
[2024-01-07] MEDS: FUROSEMIDE INJ 100 MG/10 ML VIAL 80 MG IV PUSH (08:41)
[2024-01-07] MEDS: DORZOLAMIDE/TIMOLOL OPHTH SOL 10 ML BOTTLE 1 DROP EACH EYE ×2 (08:41→20:09)
[2024-01-07] MEDS: amLODIPine BESYLATE 5 MG TABLET PO (08:41)
[2024-01-07] MEDS: APIXABAN 5 MG TABLET PO ×2 (08:41→20:09)
[2024-01-07] MEDS: BRIMONIDINE TARTRATE 0.2% OP SOLN 5 ML BTL 1 DROP LEFT EYE ×2 (08:47→20:09)
--- NOTE | 2024-01-07 11:06 | PM.IMPN ---
Progress Note: A&P Assessment and Plan (1) CHF exacerbation: Code(s): I50.9 - Heart failure, unspecified Status: Acute Assessment and Plan: acute on chronic, last echo 01/07/2024, reveals EF 50-55% - Lasix 80 mg IV once Acute on chronic diastolic heart failure BNP:888 cardiology consulted: appreciate recommendation and plan IV Lasix 80 mg once, will re-evaluate in the a.m. monitor renal function during diuresis EK01/06/24 SINUS OR ECTOPIC ATRIAL TACHYCARDIA WITH SINUS ARRHYTHMIA VENTRICULAR PREMATURE COMPLEX TSH 2.060 Medication adjustment: for better rate control Daily weights. Strict I&Os: monitor and record Optimize blood pressure less than 130/80. Fall risk assessment (2) Paroxysmal atrial fibrillation: Code(s): I48.0 - Paroxysmal atrial fibrillation Status: Acute Assessment and Plan: -continue home medication Eliquis (3) Chronic anticoagulation: Code(s): Z79.01 - USP (current) use of anticoagulants Status: Acute Assessment and Plan: - continue apixaban po q 12 hr (4) Chronic kidney disease, stage 3b: Code(s): N18.32 - Chronic kidney disease, stage 3b Status: Acute Assessment and Plan: GFR 48, Scr 1.10, hx of 1.70 -continue to monitor I&0 - (5) Type 2 diabetes mellitus: Code(s): E11.9 - Type 2 diabetes mellitus without complications Status: Acute Assessment and Plan: Initiate sliding scale insulin, Accu-Cheks, and hypoglycemic protocol.? Subjective Date/time seen: 01/07/24 11:06 Interval history: Chief Complaint: Palpitations and shortness of breath. Narrative: This is a very pleasant 83-year-old female with paroxysmal atrial fibrillation on chronic anticoagulation, combined systolic and diastolic congestive heart failure, coronary artery disease, hypertension, hyperlipidemia, chronic kidney disease, type 2 diabetes mellitus, and history of colon cancer who presented to the emergency department for evaluation of palpitations and shortness of breath. The patient provides the following history. She typically is on aware when she slips into atrial fibrillation however intermittently over the past month she has had periods of time where she is certain that she is in atrial fibrillation and this seems to occur most often when she is lying in bed at night. ?My heart seems to take off.? Over the last month or so she has noticed progressive swelling in her legs and abdomen and she also endorses mild orthopnea and paroxysmal nocturnal dyspnea. The last several days she has become progressively short on lesser and lesser exertion. She denies syncope, near syncope, fever, chills, sweats, chest pain, pleuritic pain, cough, nausea, vomiting, and diarrhea. She states compliance with her home medications and has not missed any doses. No significant caffeine or alcohol intake. No known history of sleep apnea. Preliminary workup in the ED is consistent with CHF exacerbation and she is being admitted for diuresis. Interval Hx: 01/07/24 :Patient seen this morning she is sitting up in the bed in no acute distress, denies any chest pain nausea vomiting fever or chills. plan to obtain echocardiogram, will give 80 mg Lasix once IV, patient's blood pressure is 158/93 Review of Systems Review of Systems: Twelve systems were reviewed and are negative except for as per HPI. Exam Narrative: General: Nontoxic-appearing female sitting up in bed in no acute distress. HEENT: Normocephalic, atraumatic. PERRL, EOMI. Sclera anicteric. Oral mucosa moist. Neck: Supple. No significant JVD. Respiratory: Respirations are nonlabored she is speaking in full sentences. Mildly short of breath when ambulating to the bathroom. Fine crackles heard at the bases. Cardiovascular: Irregularly irregular rate and rhythm. Gastrointestinal: Abdomen is soft, protuberant, and nontender with positive bowel sounds. Skin: Warm and dry. No
[2024-01-07 11:29] LABS: Glucose Point of Care 198 mg/dl (65-105)
[2024-01-07] MEDS: PERFLUTREN LIPID MICROSPHERES 1.5 ML VIAL DILUTED TO 10 ML TOTAL VOLUME IV PUSH (12:10)
--- NOTE | 2024-01-07 15:41 | ECHO_ITS ---
Patient Info Name: Shanel Aranda Age: 83 years : 1940 Gender: Female Ht: 61 in Wt: 220 lbs BSA: 2.13 m2 HR: 98 bpm BP: 158 / 93 mmHg Technical Quality: Fair Exam Date: 01/07/2024 11:26 AM Exam Location: Echo Lab Exam Room: 310 Patient Status: Inpatient Admit Date: 01/06/2024 Staff Ordering Physician: Jane Pak PA-C Ore Tester: Vineet Ramirez RDCS Attending Provider: Renae Day MD Referring Physician: Pasha HORVATH; Exam Type: CA echo dop color flow w con Study Info Indications - CHF Afib Complete two-dimensional, color flow and Doppler transthoracic echocardiogram is performed with contrast to opacify the left ventricle and to improve the deliniation of the left ventricle endocardial borders. Contrast/Agitated Saline Contrast/Ag. Saline: Definity Amount: 3.00 ml Administered By: Naida Prince Existing IV Access: Yes IV Access Condition: patent with no signs of infiltration Summary 1. Left ventricular systolic function is preserved, estimated at 50-55%. 2. Left ventricular chamber dimension is normal. 3. The left ventricular diastolic function is grade III diastolic dysfunction. 4. E/e' 38 is significantly elevated. 5. Left atrial chamber dimension is severely enlarged. 6. There is mild aortic valve sclerosis. 7. The mitral valve has mildly calcified leaflets. 8. There is moderate mitral valve regurgitation. 9. There is trace tricuspid valve regurgitation. 10. Moderate pulmonary hypertension, estimated pulmonary arterial systolic pressure is 58 mmHg. 11. There is trivial pericardial effusion. Left Ventricle E/e' 38 is significantly elevated. Left ventricular systolic function is preserved, estimated at 50-55%. Left ventricular chamber dimension is normal. The left ventricular diastolic function is grade III diastolic dysfunction. Right Ventricle Right ventricular systolic function is normal and with normal TAPSE 1.8 cm. Right ventricular chamber dimension is normal. Left Atria Left atrial chamber dimension is severely enlarged. Right Atria Right atrial chamber dimension is normal. Aortic Valve The aortic valve is trileaflet. There is mild aortic valve sclerosis. There is no aortic valve stenosis. There is no aortic valve regurgitation. Pulmonic Valve There is no pulmonic regurgitation. Mitral Valve The mitral valve has mildly calcified leaflets. There is no mitral valve stenosis. There is moderate mitral valve regurgitation. Tricuspid Valve There is trace tricuspid valve regurgitation. Moderate pulmonary hypertension, estimated pulmonary arterial systolic pressure is 58 mmHg. Pericardium/Pleural There is trivial pericardial effusion. Inferior Vena Cava Normal inferior vena cava with >50% collapse upon inspiration consistent with normal right atrial pressure, 5 mmHg. Aorta The aortic root size at the sinus of Valsalva is normal. Left Ventricular Outflow Tract Name Value Normal LVOT 2D LVOT Diameter 1.91 cm LVOT Doppler LVOT Peak Gradient 4 mmHg LVOT Mean Gradient 2 mmHg LVOT VTI 17.61 cm
[2024-01-07 16:35] LABS: Glucose Point of Care 102 mg/dl (65-105)
[2024-01-07] MEDS: SIMVASTATIN 20 MG TABLET PO (20:09)
[2024-01-07 20:24] LABS: Glucose Point of Care 189 mg/dl (65-105)
[2024-01-08] VITALS (9 sets, daily range): BP systolic 118–132; BP diastolic 71–90; PULSE 72–102; RESP 16–20; TEMP 35.9–36.3; O2SAT 93–95
[2024-01-08 07:38] LABS: Glucose Point of Care 133 mg/dl (65-105)
[2024-01-08] MEDS: APIXABAN 5 MG TABLET PO ×2 (09:22→20:16)
[2024-01-08] MEDS: dilTIAZem HCL CD 180 MG CAP.24HR PO (09:22)
[2024-01-08] MEDS: dilTIAZem HCL CD 180 MG CAP.24HR 360 MG PO (09:22)
[2024-01-08] MEDS: amLODIPine BESYLATE 5 MG TABLET PO (09:22)
[2024-01-08 09:25] LABS: Basophils Absolute Auto 0.1 K/mm3 (0.0-0.1); Basophils Percent Auto 0.5 % (0.2-1.2); Eosinophils Absolute Auto 0.2 K/mm3 (0-0.3); Eosinophils Percent Auto 1.6 % (0-4.4); Hematocrit 44.8 % (37.0-47.0); Hemoglobin 13.8 g/dL (12.0-15.0); Immature Granulocyte Absolute 0.03 K/mm3 (0.00-0.031); Immature Granulocyte Percent A 0.3 % (0-0.5); Lymphocytes Absolute Auto 1.95 K/mm3 (0.9-3.2); Lymphocytes Percent Auto 20.5 % (18.3-44.2); Mean Corpuscular HGB Conc 30.8 g/dl (32-36); Mean Corpuscular Hemoglobin 29.4 pg (26-34); Mean Corpuscular Volume 95.5 fl (80-100); Mean Platelet Volume 9.4 fl (7.4-10.4); Monocytes Absolute Auto 0.7 K/mm3 (0.1-0.6); Monocytes Percent Auto 7.5 % (2.6-8.5); Neutrophils Absolute Auto 6.6 K/mm3 (1.3-6.7); Neutrophils Percent Auto 69.6 % (45.5-73.1); Platelet Count Result 290 k/mm3 (150-375); Red Blood Count 4.69 M/mm3 (4.2-5.4); Red Cell Distribution Width 13.3 % (11.5-14.5); White Blood Count 9.5 K/mm3 (4.5-10.0)
[2024-01-08 09:36] LABS: Alanine Aminotransferase 19 U/L (6-35); Albumin Level 3.4 g/dL (3.5-5.1); Alkaline Phosphatase 97 U/L (38-126); Anion Gap 4 mmol/L (8-16); Aspartate Amino Transferase 26 U/L (14-36); Bilirubin,Total 0.7 mg/dL (0.2-1.3); Blood Urea Nitrogen 24 mg/dL (7-17); Carbon Dioxide 32 mmol/L (22-30); Chloride 101 mmol/L (98-107); Estimated CRCL calculation 38 ml/min; Estimated Glomerular Filt Rate 48; Glucose 128 mg/dL (65-110); Potassium 3.4 mmol/L (3.4-5.0); Sodium 137 mmol/L (137-145)
[2024-01-08 09:45] LABS: NT Pro B Type Natriuretic Pept 366 pg/mL (19.9-100)
[2024-01-08 11:08] LABS: Glucose Point of Care 177 mg/dl (65-105)
--- NOTE | 2024-01-08 13:32 | PM.IMPN ---
Progress Note: A&P Assessment and Plan (1) CHF exacerbation: Code(s): I50.9 - Heart failure, unspecified Status: Acute Assessment and Plan: acute on chronic, last echo 01/07/2024, reveals EF 50-55% - Lasix 80 mg IV once Acute on chronic diastolic heart failure BNP:888 cardiology consulted: appreciate recommendation and plan IV Lasix 80 mg once, will re-evaluate in the a.m. monitor renal function during diuresis EK01/06/24 SINUS OR ECTOPIC ATRIAL TACHYCARDIA WITH SINUS ARRHYTHMIA VENTRICULAR PREMATURE COMPLEX TSH 2.060 Medication adjustment: for better rate control Daily weights. Strict I&Os: monitor and record Optimize blood pressure less than 130/80. Fall risk assessment 01/08/24: -Continue plan above -Bnp decreased to 366 -Repeat CXR (2) Paroxysmal atrial fibrillation: Code(s): I48.0 - Paroxysmal atrial fibrillation Status: Acute Assessment and Plan: -continue home medication Eliquis - 01/08/2024 continue plan above (3) Chronic anticoagulation: Code(s): Z79.01 - regional intermodal truck driver (current) use of anticoagulants Status: Acute Assessment and Plan: - continue apixaban po q 12 hr (4) Chronic kidney disease, stage 3b: Code(s): N18.32 - Chronic kidney disease, stage 3b Status: Acute Assessment and Plan: GFR 48, Scr 1.10, hx of 1.70 -continue to monitor I&0 - (5) Type 2 diabetes mellitus: Code(s): E11.9 - Type 2 diabetes mellitus without complications Status: Acute Assessment and Plan: Initiate sliding scale insulin, Accu-Cheks, and hypoglycemic protocol.? Plan Continue home medications: VTE Prophylaxis: Eliquis DIET: heart healthy Anticipated hospital stay: > anticipate discharge in a.m. Code Status: full Subjective Date/time seen: 01/08/24 13:32 Interval history: Chief Complaint: Palpitations and shortness of breath. Narrative: This is a very pleasant 83-year-old female with paroxysmal atrial fibrillation on chronic anticoagulation, combined systolic and diastolic congestive heart failure, coronary artery disease, hypertension, hyperlipidemia, chronic kidney disease, type 2 diabetes mellitus, and history of colon cancer who presented to the emergency department for evaluation of palpitations and shortness of breath. The patient provides the following history. She typically is on aware when she slips into atrial fibrillation however intermittently over the past month she has had periods of time where she is certain that she is in atrial fibrillation and this seems to occur most often when she is lying in bed at night. ?My heart seems to take off.? Over the last month or so she has noticed progressive swelling in her legs and abdomen and she also endorses mild orthopnea and paroxysmal nocturnal dyspnea. The last several days she has become progressively short on lesser and lesser exertion. She denies syncope, near syncope, fever, chills, sweats, chest pain, pleuritic pain, cough, nausea, vomiting, and diarrhea. She states compliance with her home medications and has not missed any doses. No significant caffeine or alcohol intake. No known history of sleep apnea. Preliminary workup in the ED is consistent with CHF exacerbation and she is being admitted for diuresis. Interval Hx: 01/07/24 :Patient seen this morning she is sitting up in the bed in no acute distress, denies any chest pain nausea vomiting fever or chills. plan to obtain echocardiogram, will give 80 mg Lasix once IV, patient's blood pressure is 158/93 01/08/24: patient up this morning to bedside commode she denies any dizziness, SOB fever nausea vomiting or chills. Patient does report she still continues with mild swelling to bilateral extremities, although she does admit her SOB has since resolved. Review of Systems Review of Systems: Twelve systems were reviewed and are negative except for as per HPI. Exam Narrative: General: Non
[2024-01-08 16:19] LABS: Glucose Point of Care 130 mg/dl (65-105)
[2024-01-08] MEDS: SIMVASTATIN 20 MG TABLET PO (20:16)
[2024-01-08] MEDS: DORZOLAMIDE/TIMOLOL OPHTH SOL 10 ML BOTTLE 1 DROP EACH EYE (20:17)
[2024-01-08] MEDS: BRIMONIDINE TARTRATE 0.2% OP SOLN 5 ML BTL 1 DROP LEFT EYE (20:17)
[2024-01-08] MEDS: TOLNAFTATE 1% POWDER 45 GM BTL 1 APPLIC TOPICAL (20:19)
[2024-01-08 21:03] LABS: Glucose Point of Care 180 mg/dl (65-105)
[2024-01-09] VITALS (7 sets, daily range): BP systolic 142–150; BP diastolic 82–97; PULSE 87–103; RESP 18–20; TEMP 35.8–36; O2SAT 93–100
[2024-01-09 07:43] LABS: Glucose Point of Care 114 mg/dl (65-105)
[2024-01-09 08:32] LABS: Albumin Level 3.5 g/dL (3.5-5.1); Anion Gap 5 mmol/L (4-12); Blood Urea Nitrogen 26 mg/dL (7-17); Calcium 9.1 mg/dL (8.4-10.2); Carbon Dioxide 30 mmol/L (22-30); Chloride 103 mmol/L (98-107); Estimated CRCL calculation 42 ml/min; Estimated Glomerular Filt Rate 53; Glucose 124 mg/dL (65-110); Phosphorus 3.8 mg/dL (2.5-4.5); Potassium 3.5 mmol/L (3.4-5.0); Sodium 138 mmol/L (137-145)
[2024-01-09] MEDS: dilTIAZem HCL CD 180 MG CAP.24HR PO (08:36)
[2024-01-09] MEDS: dilTIAZem HCL CD 180 MG CAP.24HR 360 MG PO (08:36)
[2024-01-09] MEDS: BRIMONIDINE TARTRATE 0.2% OP SOLN 5 ML BTL 1 DROP LEFT EYE (08:37)
[2024-01-09] MEDS: amLODIPine BESYLATE 5 MG TABLET PO (08:37)
[2024-01-09] MEDS: TOLNAFTATE 1% POWDER 45 GM BTL 1 APPLIC TOPICAL (08:37)
[2024-01-09] MEDS: DORZOLAMIDE/TIMOLOL OPHTH SOL 10 ML BOTTLE 1 DROP EACH EYE (08:37)
[2024-01-09] MEDS: APIXABAN 5 MG TABLET PO (08:37)
[2024-01-09] MEDS: lisinopriL 20 MG TABLET 40 MG PO (08:39)
[2024-01-09 11:25] LABS: Glucose Point of Care 168 mg/dl (65-105)
--- NOTE | 2024-01-09 12:39 | PM.DS ---
DS: Admitting Diagnosis Discharge Date 01/09/2024 Admitting Diagnosis CHF exacerbation, paroxysmal atrial fibrillation, chronic anticoagulation, CKD stage IIIB, diabetes type 2 DS: Discharge Diagnosis Discharge Diagnosis (1) CHF exacerbation: Qualifiers: Heart failure type: combined systolic and diastolic Qualified Code(s): I50.43 - Acute on chronic combined systolic (congestive) and diastolic (congestive) heart failure Code(s): I50.9 - Heart failure, unspecified Status: Acute (2) Paroxysmal atrial fibrillation: Code(s): I48.0 - Paroxysmal atrial fibrillation Status: Chronic (3) Chronic anticoagulation: Code(s): Z79.01 - intermediate accountant (current) use of anticoagulants Status: Chronic (4) Chronic kidney disease, stage 3b: Code(s): N18.32 - Chronic kidney disease, stage 3b Status: Chronic (5) Type 2 diabetes mellitus: Code(s): E11.9 - Type 2 diabetes mellitus without complications Status: Chronic DS: Summary Hospital Course Reason for hospitalization: Patient admitted for CHF exacerbation with extremity swelling shortness of breath crackles and paroxysmal atrial fibrillation on chronic anticoagulation. Hospital Course: Patient admitted for CHF exacerbation history of combined systolic and diastolic congestive heart failure not routinely on diuretic therapy. Patient is on high-dose diltiazem for blood pressure and rate control as well as amlodipine and lisinopril for hypertension. Patient was admitted given IV diuresis with significant improvement in dyspnea orthopnea and extremity swelling. Today she was transition to oral furosemide. Discussed the need to follow-up with primary care within the next 1 week, prescription for furosemide and the need to weigh herself each day. Patient discharged in improved and stable condition. Status at Discharge Cognitive/behavioral status at discharge: Awake alert oriented and pleasant Functional status at discharge: independent ambulation Overall status at discharge: patient is progressing back to baseline Time Spent with Patient Time attestation: Total time spent providing and/or coordinating discharge services: 45 minutes Time spent: Greater than 30 minutes Exam Narrative: General: Nontoxic-appearing female sitting up in bed in no acute distress. HEENT: Normocephalic, atraumatic. PERRL, EOMI. Sclera anicteric. Oral mucosa moist. Neck: Supple. No significant JVD. Respiratory: Respirations are nonlabored she is speaking in full sentences. Clear lung sounds Cardiovascular: Irregularly irregular rate and rhythm. Gastrointestinal: Abdomen is soft, protuberant, and nontender with positive bowel sounds. Skin: Warm and dry. No rash or lesions on limited exam. Extremities: No cyanosis or clubbing. Mild bilateral lower extremity edema. Neurological: Alert. Cranial nerves 2-12 are grossly intact. No gross focal deficits to casual conversation. Psychiatric: Pleasant and cooperative with normal mood and affect. Judgment and insight intact. DS: Data Data Completed and Pending Completed studies during hospitalization: Chest x-ray, echocardiogram Labs on day of discharge: Labs from last 24 hours 01/09/24 01/09/24 01/09/24 11:20 08:06 07:38 Sodium 138 Potassium 3.5 Chloride 103 Carbon Dioxide 30 Anion Gap 5 L BUN 26 H Creatinine 1.00 Estim Creat Clear Calc 42 Estimated GFR 53 L Glucose 124 H POC Capillary Glucose 168 H 114 H Calcium 9.1 Phosphorus 3.8 Albumin 3.5 01/08/24 01/08/24 19:48 16:15 Sodium Potassium Chloride Carbon Dioxide Anion Gap BUN Creatinine Estim Creat Clear Calc Estimated GFR Glucose POC Capillary Glucose 180 H 130 H Calcium Phosphorus Albumin Discharge Plan Discharge Attending physician on discharge: Juan Miguel Hawthorne Discharging Clinician: Sundeep Walker Anticipated Discharge
[2024-01-09] MEDS: FUROSEMIDE 40 MG TABLET PO (13:28)
--- NOTE | 2024-01-10 15:35 | IVDEFINITY ---
Prior to administration of IV Definity the patient was educated on the risks and benefits of the imaging enhancing agent including potential adverse side effects. The patient verbalized understanding. Allergies were verified. No exclusion criteria were identified and at least one of the following inclusion criteria were met: 1) physician request, 2) patient technically difficult to image (per the [place] [employer] guidelines of two or more segments not discernable within the apical view), or 3) questionable left ventricular function. ?
== END 2024-01-09 14:10 | disposition home or self-care (01) | DRG 291 ==
LOC: ANHED 13:13 → ANHIMU 14:53 → ANH3MEDSUR 01-07 06:11
PROVIDERS: General Practice; Nurse Practitioner; Physician Assistant; Admitting Provider Internal Medicine; Emergency Provider Emergency Medicine; PCP Family Medicine; Visit Provider Nurse Practitioner
DX: I13.0 Hypertensive heart and chronic kidney disease with heart failure and stage 1 through stage 4 chronic kidney disease, or unspecified chronic kidney disease (principal); I50.43 Acute on chronic combined systolic (congestive) and diastolic (congestive) heart failure; Z68.41 Body mass index [BMI] 40.0-44.9, adult; N18.32 Chronic kidney disease, stage 3b; E11.22 Type 2 diabetes mellitus with diabetic chronic kidney disease; I48.0 Paroxysmal atrial fibrillation; D64.9 Anemia, unspecified; I70.0 Atherosclerosis of aorta; I25.10 Atherosclerotic heart disease of native coronary artery without angina pectoris; E11.319 Type 2 diabetes mellitus with unspecified diabetic retinopathy without macular edema; E78.5 Hyperlipidemia, unspecified; M19.90 Unspecified osteoarthritis, unspecified site; Z79.01 Long term (current) use of anticoagulants; Z85.038 Personal history of other malignant neoplasm of large intestine; Z90.49 Acquired absence of other specified parts of digestive tract; E66.01 Morbid (severe) obesity due to excess calories
CPT/HCPCS: 36415; 71045; 71046; 80048; 80053; 80069; 82607; 82746; 82948; 83036; 83735; 83880; 84443; 84484; 85025; 85027; 85610; 85730; 93005; 94762; 96374; 96375; 96376; 97161; 99285; A9270; C8929; G0378; J1940; Q9957